=== PATIENT | female | born 2000 | race African-American/Black ===

== ENCOUNTER 2020-06-28 15:41 | Emergency (ER) | payer OTHER ==
[2020-06-28] MEDS ORDERED: diphenhydrAMINE INJ 50 MG/ML VIAL IVP STA (16:00)
[2020-06-28] MEDS ORDERED: PROCHLORPERAZINE 10 MG/2 ML VIAL IVP STA (16:01)
--- NOTE | 2020-06-28 16:04 | ED Physician Documentation ---
History of Present Illness - Stated complaint Stated Complaint: MURPHY WITH VISION CHANGES - Chief complaint Chief Complaint: Neuro - Additonal information Additional information: 19-year-old female presents to the emergency department for chief complaint of headache that began about 2 days ago. Headache was not sudden onset nor was it associated with trauma. She does report a history of migraines which she usually has some light and noise sensitivity. At home but they did not resolve this time. She is reporting blurry vision. She has no fevers abdominal pain dysuria urgency or frequency. She does endorse some nausea but no vomiting. Denies possibility of states that she has the NuvaRing for control Headache is mostly right sided, noes not radiate. no neck pain. no seizures Review of Systems Constitutional: denies: Fever, Chills, Myalgias Eyes: reports: Decreased vision (blurry vision. NO diolopia) Ears: reports: Reviewed and negative Nose: reports: Reviewed and negative Throat: reports: Reviewed and negative Cardiac: reports: Reviewed and negative Respiratory: reports: Reviewed and negative GI: reports: Nausea. denies: Abdominal Pain, Vomiting, Constipation, Diarrhea : denies: Dysuria, Frequency, Hesitancy Skin: reports: Reviewed and negative Musculoskeletal: denies: Neck pain Neurologic: reports: Headache. denies: Generalized weakness, Focal weakness, Numbness, Near syncope, Syncope, Seizure, Altered mental status, Head injury, LOC PD PAST MEDICAL HISTORY - Allergies Allergies/Adverse Reactions: Allergies Allergy/AdvReac Type Severity Reaction Status Date / Time No Known Drug Allergies Allergy Verified 06/28/20 15:48 PD ED PE EXPANDED - General General: Alert, Well developed/nourished, In Pain - HEENT HEENT: Atraumatic, PERRL, EOMI, Ears normal, Moist mucous membranes - Neck Neck: Supple w/out meningeal sx. No: Adenopathy - Cardiac Cardiac: Regular Rate, Radial strong equal, Pedal strong equal, Cap refill < 2 sec - Respiratory Respiratory: Clear to ausultation izabel. No: Distress, Labored - Abdomen Abdomen: Normal Bowel sounds. No: Tender to palpation - Derm Derm: Normal color. No: Rash - Extremities Extremities: Normal - Neuro Neuro: Alert and Oriented X 3, CNII-XII intact - GCS Eye Opening: Spontaneous Motor: Obeys Commands Verbal: Oriented Total: 15 Results - Vitals Vitals: Vital Signs - 24 hr 06/28/20 06/28/20 06/28/20 15:43 16:30 17:00 Temperature 36.6 C Heart Rate 123 H 108 H 81 Respiratory 17 18 16 Rate Blood Pressure 151/78 H 146/81 H 111/68 O2 Saturation 95 100 100 Oxygen O2 Source Room air - Labs Labs: Laboratory Tests 06/28/20 06/28/20 16:10 17:19 HCG, Quant < 0.60 Urine Color YELLOW Urine Clarity CLEAR Urine pH 7.0 Ur Specific Clyde 1.010 Urine Protein NEGATIVE Urine Glucose (UA) NEGATIVE Urine Ketones NEGATIVE Urine Occult Blood NEGATIVE Urine Nitrite NEGATIVE Urine Bilirubin NEGATIVE Urine Urobilinogen 0.2 (NORMAL) Ur Leukocyte Esterase NEGATIVE Ur Microscopic Review NOT INDICATED Urine Culture Comments NOT INDICATED PD MEDICAL DECISION MAKING - ED course Complexity details: reviewed results, re-evaluated patient, considered differential, d/w patient, d/w family ED course: 19-year-old female presents to the emergency department for evaluation of a right-sided headache for 2 days with some associated blurry vision and nausea but no vomiting. She does report a history of migraines. The headache resolved almost entirely in the emergency department following Benadryl and Compazine and a liter of fluids. Her urine showed no signs of infection. Visual acuity was checked both with and without glasses and there was no diplopia found. On exam patient feels markedly improved. Will advise rest and fluids at home. This headache was not sudden onset nor associated with fevers or nuchal rigidity. My suspicion for subarachnoid hemorrhage or infectious etiology is exceedingly low Departure - Departure Disposition: 01 Home, Self Care Clinical Impression: Headache Qualifiers: Headache type: other headache syndrome Qualified Code(s): G44.89 - Other headache syndrome Condition: Stable Record reviewed to determine appropriate education?: Yes Instructions: ED Headache Migraine Comments: I am glad that your headache is better. Today in the emergency department we gave you IV fluids, Benadryl and Compazine. Your headache is acting most like a migraine does. I recommend lots of fluids and rest at home. If at any point the headache returns and is suddenly severe, it is associated with uncontrolled vomiting or high fevers then please return to the emergency department. Your urine today showed no signs of infection.
[2020-06-28] MEDS ORDERED: SODIUM CHLORIDE 0.9% 1,000 ML IV STA (16:13)
[2020-06-28 17:14] VITALS: BP 111/68
[2020-06-28 17:24] LABS: BILIRUBIN,URINE NEGATIVE (NEGATIVE); GLUCOSE, URINE (UA) NEGATIVE (NEGATIVE); KETONES,URINE (UA) NEGATIVE (NEGATIVE); LEUKOCYTE ESTERASE, URINE NEGATIVE (NEGATIVE); NITRITE,URINE NEGATIVE (NEGATIVE); OCCULT BLOOD,URINE NEGATIVE (NEGATIVE); PROTEIN,URINE NEGATIVE (NEGATIVE); UROBILINOGEN,URINE 0.2 (NORMAL) E.U./dL (NORMAL)
[2020-06-28 17:25] LABS: CLARITY,URINE CLEAR (CLEAR)
== END 2020-06-28 18:01 | disposition home or self-care (01) ==
LOC: ED 15:41
DX: G44.89 Other headache syndrome (principal); Z86.69 Personal history of other diseases of the nervous system and sense organs
CPT/HCPCS: 36415; 81003; 84702; 96361; 96374; 96375; 99282; 99283; J1200; 81001; 87086